=== PATIENT | male | born 1985 | race Caucasian/White ===

== ENCOUNTER → 2020-03-30 14:36 | Outpatient (BNVA) | payer MEDICARE, MEDICAID, SELFPAY | PROVIDERS: Family Provider Internal Medicine; PCP Internal Medicine; Visit Provider Specialist | DX: G82.20 Paraplegia, unspecified (principal); V86.99XS Unspecified occupant of other special all-terrain or other off-road motor vehicle injured in nontraffic accident, sequela; S24.111 Complete lesion at T1 level of thoracic spinal cord | CPT/HCPCS: 99204 ==

== ENCOUNTER → 2020-04-08 10:46 | Outpatient (BNVA) | payer MEDICARE, MEDICAID, SELFPAY | PROVIDERS: Family Provider Internal Medicine; PCP Internal Medicine; Visit Provider Specialist | DX: S24.111 Complete lesion at T1 level of thoracic spinal cord; V86.99XS Unspecified occupant of other special all-terrain or other off-road motor vehicle injured in nontraffic accident, sequela; G82.21 Paraplegia, complete | CPT/HCPCS: 64644; J0585 ==

== ENCOUNTER → 2020-07-15 10:12 | Outpatient (BNVA) | payer MEDICARE, MEDICAID, SELFPAY | PROVIDERS: Family Provider Internal Medicine; PCP Internal Medicine; Visit Provider Specialist | DX: S24.111 Complete lesion at T1 level of thoracic spinal cord; Y93.9 Activity, unspecified; G82.21 Paraplegia, complete | CPT/HCPCS: 64644; J0585 ==

== ENCOUNTER 2021-02-25 13:52 | Outpatient (CLI) | payer MEDICARE, MEDICAID, SELFPAY ==
--- NOTE | 2021-02-25 13:58 | XR_ITS ---
WS: [id number] Bone mineral density performed on a [employer], 02/25/2021 Clinical data: OSTEOPOROSIS Comparison study: DEXA scan, 06/12/2014. Findings: The bone mineral density of the distal left radius measures 0.963 g/sq cm for young adult score of -0 .3 Measurement of the left hip reveals a bone mineral density of 0.521 g/cm2 with a young adult T score of -4.0. Measurement of the right hip reveals the bone mineral density of 0.515 g/cm2 for young adult T score of -4.1. The bone mineral density of both hips has diminished slightly compared to the previous study. XR/XR DEXA axial skeleton* [id number] Impression: 1. Normal bone mineral density of the left radius. 2. Osteoporosis of both hips.
== END 2021-02-25 13:53 | disposition home or self-care (01) ==
PROVIDERS: PCP Internal Medicine; Visit Provider Internal Medicine
DX: M81.0 Age-related osteoporosis without current pathological fracture (principal)
CPT/HCPCS: 77080

== ENCOUNTER 2021-09-15 09:47 | Emergency (ER) | payer MEDICARE, MEDICAID, SELFPAY ==
[2021-09-15 09:50] VITALS: BP 121/74; PULSE 66; RESP 18; TEMP 36.6; O2SAT 98; BMI 15.1
--- NOTE | 2021-09-15 09:56 | CT_ITS ---
WS: [id number] CT HEAD TECHNIQUE: Noncontrast CT of the head obtained from the skullbase to the vertex. CLINICAL INFORMATION: fell out of chair, hit back of head. denies LOC COMPARISON: None. DLP: 829.[address] scans at [facility] use at least one of these dose optimization techniques: automated e xposure control; mA and/or kV adjustment per patient size (includes targeted exams where dose is matc hed to clinical indication); or iterative reconstruction. FINDINGS: No evidence of intracranial hemorrhage or mass effect. Ventricular system and basal cisterns are pyle nt. No extra-axial fluid collections. No evidence of mass or mass effect. Normal veloz-white different iation. Paranasal sinuses and mastoid air cells are well aerated. Retention cyst LEFT maxillary sinus. Partia l opacification of the ethmoid air cells. Mastoid air cells well aerated. Normal visualized soft tiss ues. CT/CT head wo con* [id number] IMPRESSION: 1. No evidence of intracranial hemorrhage or mass effect. 2. No acute intracranial findings.
--- NOTE | 2021-09-15 09:56 | CT_ITS ---
WS: [id number] CT CERVICAL TRAUMA TECHNIQUE: Noncontrast CT of the cervical spine with coronal and sagittal reformatted images. CLINICAL INFORMATION: neck pain after fall COMPARISON: None. DLP: 526.[address] scans at [facility] use at least one of these dose optimization techniques: automated e xposure control; mA and/or kV adjustment per patient size (includes targeted exams where dose is matc hed to clinical indication); or iterative reconstruction. FINDINGS: Straightening of the normal cervical lordosis. Normal craniocervical junction. Normal C1-C2 articulat ion. Dens is normal in appearance. Normal occipital condyles. No high-grade spinal canal narrowing. N ormal C1 ring. No evidence of acute fracture or dislocation. Distal screw fixation in the upper thora cic spine partially visualized originating at T2. Normal prevertebral soft tissues. Mastoids air cells are well aerated. CT/CT cervical spin wo con* [id number] IMPRESSION: No evidence of acute fracture or dislocation.
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
[2021-09-15 10:54] VITALS: BP 123/71; PULSE 57; O2SAT 98
[2021-09-15] MEDS: ondansetron 4 MG Tablet PO (10:54)
[2021-09-15] MEDS: HYDROcodone-acetaminophen 7.5-325 mg Tablet 1 TAB PO (10:54)
[2021-09-15 11:18] VITALS: PULSE 58; O2SAT 95
== END 2021-09-15 11:16 | disposition home or self-care (01) ==
PROVIDERS: Emergency Provider Physician Assistant; PCP Internal Medicine
DX: S09.8XXA Other specified injuries of head, initial encounter (principal); M54.2 Cervicalgia; Z79.01 Long term (current) use of anticoagulants; Z99.3 Dependence on wheelchair; G82.20 Paraplegia, unspecified; W05.0XXA Fall from non-moving wheelchair, initial encounter
CPT/HCPCS: 70450; 72125; 99283; Q0162

== ENCOUNTER 2024-05-05 13:00 | Outpatient (CLI) | payer MEDICARE, MEDICAID, SELFPAY ==
--- NOTE | 2024-05-05 13:18 | XR_ITS ---
WS: [id number] DEXA (DUAL ENERGY X-RAY ABSORPTIOMETRY) Bone mineral density was performed using a [employer] machine. HISTORY: OSTEOPOROSIS COMPARISON: 02/25/2021 Left forearm BMD: 0.946 g/cm2. T score: -0.4 Z score: -0.4 Total hip BMD: Left: 0.482 g/cm2. T score: -4.3 Z score: -3.7 Right: 0.493 g/cm2. T score: -4.2 Z score: -3.6 Compared to the prior study from 02/25/2021. LEFT forearm bone mineral density has decreased by 1.8%. Bilateral hips bone mineral density has decreased by 5.8%. XR/XR DEXA axial skeleton* [id number] IMPRESSION: OSTEOPOROSIS based upon the WHO classification for females. Significant decrease in bone mineral density within the hips since the prior . No significant change in the forearm.
== END 2024-05-05 13:01 | disposition home or self-care (01) ==
LOC: RAD 13:03
PROVIDERS: PCP Internal Medicine; Visit Provider Family Medicine
DX: M81.0 Age-related osteoporosis without current pathological fracture (principal)
CPT/HCPCS: 77080

== ENCOUNTER → 2024-10-27 10:59 | Outpatient (BNVA) | payer MEDICARE, MEDICAID, SELFPAY | PROVIDERS: PCP Internal Medicine; Visit Provider Internal Medicine | DX: E55.9 Vitamin D deficiency, unspecified (principal); E07.9 Disorder of thyroid, unspecified; M81.0 Age-related osteoporosis without current pathological fracture | CPT/HCPCS: 99204 ==

== ENCOUNTER → 2024-12-29 11:29 | Outpatient (BNVA) | payer MEDICARE, MEDICAID, SELFPAY | PROVIDERS: PCP Internal Medicine; Visit Provider Internal Medicine | DX: M81.0 Age-related osteoporosis without current pathological fracture (principal); E55.9 Vitamin D deficiency, unspecified | CPT/HCPCS: 99214 ==